=== PATIENT | male | born 1955 | race Caucasian/White ===

== ENCOUNTER 2022-05-06 08:00 | Outpatient (CLI) | payer BC ==
[~2022-05-06] VITALS: Ht 182.9 cm; Wt 90.7 kg
== END 2022-05-06 17:00 | disposition home or self-care (01) ==
LOC: SLB 08:00 → EDSTATUS 05-09 07:30
PROVIDERS: ATTEND Student in an Organized Health Care Education/Training Program
DX: Z01.812 Encounter for preprocedural laboratory examination (principal); Z20.822 Contact with and (suspected) exposure to COVID-19; M17.12 Unilateral primary osteoarthritis, left knee
CPT/HCPCS: 87081; 36415; U0003

== ENCOUNTER 2022-06-27 04:40 | Inpatient (IN) | payer BC ==
[~2022-06-27] VITALS: Ht 182.9 cm; Wt 91.8 kg
[2022-06-27] MEDS ORDERED: NS IRRIG SOLN 1000 ML IR ONE (07:30)
[2022-06-27] MEDS ORDERED: ONDANSETRON HCL 4 MG/2 ML VIAL ONE (07:30)
[2022-06-27] MEDS ORDERED: ceFAZolin SODIUM 1 GM VIAL ONE (07:30)
[2022-06-27] MEDS ORDERED: DEXAMETHASONE SOD PHOSPHATE 4 MG/ML VIAL ONE (07:30)
[2022-06-27] MEDS ORDERED: VANCOMYCIN HCL 1000 MG/VIAL IV ONE (07:30)
[2022-06-27] MEDS ORDERED: LR 1,000 ML IV.SOLN IV ONE (07:30)
[2022-06-27] MEDS ORDERED: KETOROLAC TROMETHAMINE 30 MG VIAL ONE (07:30)
[2022-06-27] MEDS ORDERED: LACTULOSE 20 GM/30 ML UDC PO PRN (07:30)
[2022-06-27] MEDS ORDERED: METOCLOPRAMIDE HCL 10 MG/2 ML VIAL IVP PRN ×2 (07:30→08:30)
[2022-06-27] MEDS ORDERED: ACETAMINOPHEN I.V. 1000 MG /100 ML IVPB PREMIX IV ONE (07:30)
[2022-06-27] MEDS ORDERED: NALOXONE HCL 0.4 MG/ML AMP (NARCAN) IVP PRN ×4 (07:30→08:30)
[2022-06-27] MEDS ORDERED: BUPIVACAINE /EPINEPHRINE/PF 0.5% 30 ML VIAL INJ ONE (07:30)
[2022-06-27] MEDS ORDERED: BISACODYL 10 MG/SUPPOSITORY RC PRN (07:30)
[2022-06-27] MEDS ORDERED: MIDAZOLAM HCL 5 MG/ML VIAL (VERSED) IV ONE (07:30)
[2022-06-27] MEDS ORDERED: MIDAZOLAM HCL 2 MG/2 ML VIAL (VERSED) ONE (07:30)
[2022-06-27] MEDS ORDERED: MORPHINE SULFATE 10MG/10ML PF AMP ONE (07:30)
[2022-06-27] MEDS ORDERED: DIPHENHYDRAMINE HCL 25 MG CAPSULE PO PRN (07:30)
[2022-06-27] MEDS ORDERED: SACU1TAB4 PO (08:00)
[2022-06-27] MEDS ORDERED: ASPI-989 PO (08:00)
[2022-06-27] MEDS ORDERED: FURO-150 PO (08:00)
[2022-06-27] MEDS ORDERED: TICA90TA PO (08:00)
[2022-06-27] MEDS ORDERED: CARV25TA55 PO (08:00)
[2022-06-27] MEDS ORDERED: POTA-197 PO (08:00)
[2022-06-27] MEDS ORDERED: LIP80 PO (08:00)
[2022-06-27] MEDS ORDERED: EZET-75 PO (08:00)
[2022-06-27] MEDS ORDERED: EMPA10TA PO (08:00)
[2022-06-27] MEDS ORDERED: LABETALOL 100 MG/ 20ML VIAL IVP PRN (08:30)
[2022-06-27] MEDS ORDERED: DIPHENHYDRAMINE INJ 50 MG/ML VIAL IVP PRN (08:30)
[2022-06-27] MEDS ORDERED: ACETAMINOPHEN I.V. 1000 MG 100 ML IV ONE (08:30)
[2022-06-27] MEDS ORDERED: HYDROmorphone 1 MG/ML INJ. CARTRIDGE IVP PRN ×5 (08:30→11:00)
[2022-06-27] MEDS ORDERED: LR 1,000 ML IV SCH (08:30)
[2022-06-27] MEDS ORDERED: hydrALAZINE HCL 20 MG/ML VIAL IVP PRN (08:30)
[2022-06-27] MEDS ORDERED: MEPERIDINE HCL/PF 25 MG/ML DISP.SYRIN IVP PRN (08:30)
[2022-06-27] MEDS ORDERED: ONDANSETRON HCL 4 MG/2 ML VIAL IVP PRN ×2 (08:30→11:45)
[2022-06-27 11:00] VITALS: BP_SYST 126
[2022-06-27] MEDS ORDERED: traMADol HCL HCL 50 MG TABLET (ULTRAM) PO PRN (11:00)
[2022-06-27] MEDS ORDERED: LORATADINE 10 MG TABLET PO PRN (11:00)
[2022-06-27] MEDS ORDERED: oxyCODONE HCL 5 MG TABLET PO PRN ×2 (11:00)
[2022-06-27] MEDS ORDERED: TAMSULOSIN HCL 0.4 MG CAP PO ONE (12:00)
[2022-06-27] MEDS: ACETAMINOPHEN 500 MG TABLET PO SCH ×2 (13:40→21:50)
[2022-06-27] MEDS: KETOROLAC TROMETHAMINE 10 MG TABLET (TORADOL) PO SCH ×2 (16:56→22:00)
[2022-06-27] MEDS: ceFAZolin SODIUM 2 GM in D5W 50 ML IV SCH (18:53)
[2022-06-27 20:00] VITALS: BP_SYST 104
[2022-06-27] MEDS: CARVEDILOL 25 MG TABLET (COREG) PO SCH (21:00)
[2022-06-27] MEDS: SENNOSIDES/DOCUSATE SODIUM 1 TAB TABLET(SENOKOT-S) PO SCH (21:48)
[2022-06-28 00:51] VITALS: BP_SYST 127
[2022-06-28] MEDS: ceFAZolin SODIUM 2 GM in D5W 50 ML IV SCH (02:31)
[2022-06-28] MEDS: ACETAMINOPHEN 500 MG TABLET PO SCH ×2 (05:07→14:00)
[2022-06-28] MEDS: KETOROLAC TROMETHAMINE 10 MG TABLET (TORADOL) PO SCH (05:08)
[2022-06-28 07:10] LABS: BASOPHILS % (AUTO) 0.1 % (0.0-2.0); HEMATOCRIT 37.7 % (36-54); HEMOGLOBIN 12.9 g/dL (14.0-18.0); LYMPHOCYTES % (AUTO) 9.4 % (20.5-51.5); MEAN CORPUSCULAR HEMOGLOBIN 30 pg (27-31); MEAN CORPUSCULAR HGB CONC 34 % (32-36); MEAN CORPUSCULAR VOLUME 89 fL (79.0-98.0); MONOCYTES # (AUTO) 1.1 K/uL (0.0-1.0); MONOCYTES % (AUTO) 10.7 % (1.7-9.3); NEUTROPHILS # (AUTO) 8.2 K/uL (1.8-7.7); NEUTROPHILS % (AUTO) 79.8 % (40.0-70.0); PLATELET COUNT (AUTO) 172 K/uL (130-430); RED BLOOD CELL COUNT(AUTO) 4.24 MIL/uL (4.2-6.2); RED CELL DISTRIBUTION WIDTH 14.8 % (9.0-15.0); WHITE BLOOD COUNT (AUTO) 10.3 K/uL (4.8-10.8)
[2022-06-28 07:11] LABS: CALCIUM 8.3 mg/dL (8.4-11.0); CREATININE 1.16 mg/dL (0.55-1.30); TOTAL BILIRUBIN 1.5 mg/dL (0.0-1.0)
[2022-06-28 08:00] VITALS: BP_SYST 114
[2022-06-28] MEDS ORDERED: TICAGRELOR 90 MG TABLET PO SCH (09:00)
[2022-06-28] MEDS ORDERED: TAMSULOSIN HCL 0.4 MG CAP PO SCH (09:00)
[2022-06-28] MEDS ORDERED: ASPIRIN 81 MG TAB.CHEW PO SCH ×3 (09:00)
[2022-06-28] MEDS ORDERED: FUROSEMIDE 20 MG TABLET PO SCH (09:00)
[2022-06-28] MEDS ORDERED: DECADRON 4 MG TABLET PO SCH (09:00)
[2022-06-28] MEDS ORDERED: ATORVASTATIN 20 MG TABLET PO SCH (09:00)
[2022-06-28] MEDS: SENNOSIDES/DOCUSATE SODIUM 1 TAB TABLET(SENOKOT-S) PO SCH (09:39)
[2022-06-28] MEDS: CARVEDILOL 25 MG TABLET (COREG) PO SCH (09:40)
[2022-06-28] MEDS ORDERED: CELECOXIB 200 MG CAPSULE PO SCH (11:00)
[2022-06-28 11:21] VITALS: BP_SYST 120
[2022-06-28 15:23] VITALS: BP_SYST 120
[2022-06-28 16:51] VITALS: BP_SYST 118
== END 2022-06-28 17:29 | disposition home health service (06) | DRG 470 ==
LOC: SMU 04:40 → STU 11:47 → SMU 06-28 07:35
PROVIDERS: ADMIT Student in an Organized Health Care Education/Training Program; ATTEND Student in an Organized Health Care Education/Training Program
PROC: 0SRD0J9 Replacement of Left Knee Joint with Synthetic Substitute, Cemented, Open Approach (ICD-10-PCS; principal; 2022-06-27 07:44)
DX: M17.12 Unilateral primary osteoarthritis, left knee (principal); E78.5 Hyperlipidemia, unspecified; I25.10 Atherosclerotic heart disease of native coronary artery without angina pectoris; I25.5 Ischemic cardiomyopathy; Z20.822 Contact with and (suspected) exposure to COVID-19; Z95.810 Presence of automatic (implantable) cardiac defibrillator
CPT/HCPCS: 36415; 73560-TC; 80053; 80061; 82962; 83880; 85025; 87081; 88305; 88311; 96379; 97110-GP; 97116-GP; 97163-GP; 97530-GP; C1713; C1776; G0378; J0131; J0690; J1100; J1885; J2250; J2274; J2405; J3370; J3465; J3490; J7060; J7120; J8540